=== PATIENT | female | born 1965 | race American Indian/Alaskan Native ===

== ENCOUNTER 2017-11-19 10:04 | Emergency (ER) | payer SELFPAY ==
[2017-11-19 10:22] VITALS: BP 122/98
--- NOTE | 2017-11-19 10:46 | Emergency Department Report ---
ED General Adult HPI - General Chief complaint: Pain General Stated complaint: hurting all over Time Seen by Provider: 11/19/17 10:29 Source: patient Mode of arrival: Ambulatory Limitations: No Limitations - History of Present Illness Initial comments: Patient is a 52-year-old [place] female past history of arthritis was in the MRI machine for roughly 40 3:55 days ago and because of lays still in position is now having increased left knee pain. Patient is a history of knee arthropathy with a total knee replacement. Patient states is been no trauma. Patient also is having some generalized body aches in her back as well from the procedure. Patient states is been no fevers chills nausea vomiting. - Related Data Home Medications Medication Instructions Recorded Confirmed Last Taken Esomeprazole Magnesium [NexIUM] 40 mg PO QDAY 08/18/15 08/18/15 08/17/15 Gabapentin [Neurontin] 600 mg PO DAILY 08/18/15 08/18/15 08/17/15 Hydrochlorothiazide [HCTZ] 25 mg PO QDAY 08/18/15 08/18/15 08/17/15 Ledipasvir/Sofosbuvir [Harvoni 1 tab PO DAILY 08/18/15 08/18/15 08/17/15 90-400 mg Tablet] Previous Rx's Medication Instructions Recorded Last Taken Type amLODIPine [Norvasc] 5 mg PO DAILY #30 tab 05/04/15 08/17/15 Rx Fluticasone [Flonase] 1 spray NS QDAY #1 bottle 08/19/15 Unknown Rx hydrOXYzine HCL [Atarax] 25 mg PO QHS PRN #5 tablet 01/10/16 Unknown Rx methylPREDNISolone [Medrol Dose 4 mg PO QAM #1 pack 01/10/16 Unknown Rx Miller] Ketorolac [Toradol] 10 mg PO Q6H PRN #14 tablet 11/19/17 Unknown Rx Allergies Allergy/AdvReac Type Severity Reaction Status Date / Time lisinopril Allergy Angioedema Verified 11/19/17 10:13 ED Review of Systems ROS: Stated complaint: hurting all over Other details as noted in HPI Comment: All other systems reviewed and negative ED Past Medical Hx - Past Medical History Hx Hypertension: Yes Hx CVA: No Hx Heart Attack/AMI: No Hx Congestive Heart Failure: No Hx Diabetes: No Hx Deep Vein Thrombosis: No Hx Pulmonary Embolism: No Hx GERD: Yes Hx Liver Disease: No Hx Renal Disease: No Hx Sickle Cell Disease: No Hx Arthritis: Yes Hx Headaches / Migraines: No Hx Seizures: No Hx Kidney Stones: No Hx Psychiatric Treatment: No Hx Asthma: No Hx COPD: No Hx Tuberculosis: No Hx Dementia: No Hx HIV: No Additional medical history: Hep C. - Surgical History Past Surgical History?: Yes Hx Coronary Stent: No Hx Open Heart Surgery: No Hx Pacemaker: No Hx Internal Defibrillator: No Hx Cholecystectomy: No Hx Appendectomy: Yes Hx Breast Surgery: No Additional Surgical History: knee surgery 2011, Cyst removed on ovaries. - Social History Smoking Status: Never Smoker Substance Use Type: None - Medications Home Medications: Home Medications Medication Instructions Recorded Confirmed Last Taken Type amLODIPine [Norvasc] 5 mg PO DAILY #30 tab 05/04/15 08/18/15 08/17/15 Rx Esomeprazole Magnesium [NexIUM] 40 mg PO QDAY 08/18/15 08/18/15 08/17/15 History Gabapentin [Neurontin] 600 mg PO DAILY 08/18/15 08/18/15 08/17/15 History Hydrochlorothiazide [HCTZ] 25 mg PO QDAY 08/18/15 08/18/15 08/17/15 History Ledipasvir/Sofosbuvir [Harvoni 1 tab PO DAILY 08/18/15 08/18/15 08/17/15 History 90-400 mg Tablet] Fluticasone [Flonase] 1 spray NS QDAY #1 bottle 08/19/15 Unknown Rx hydrOXYzine HCL [Atarax] 25 mg PO QHS PRN #5 tablet 01/10/16 Unknown Rx methylPREDNISolone [Medrol Dose 4 mg PO QAM #1 pack 01/10/16 Unknown Rx Miller] Ketorolac [Toradol] 10 mg PO Q6H PRN #14 tablet 11/19/17 Unknown Rx ED Physical Exam - General Limitations: No Limitations General appearance: alert, in no apparent distress - Head Head exam: Present: atraumatic, normocephalic - Eye Eye exam: Present: normal appearance - ENT ENT exam: Present: mucous membranes moist - Neck Neck exam: Present: normal inspection - Respiratory Respiratory exam: Present: normal lung sounds bilaterally. Absent: respiratory distress, wheezes, rales, rhonchi - Cardiovascular Cardiovascular Exam: Present: regular rate, normal rhythm. Absent: systolic murmur, diastolic murmur, rubs, gallop - GI/Abdominal GI/Abdominal exam: Present: soft, normal bowel sounds. Absent: distended, tenderness, guarding, rebound - Extremities Exam Extremities exam: Present: normal inspection - Back Exam Back exam: Present: normal inspection - Neurological Exam Neurological exam: Present: alert, oriented X3 - Psychiatric Psychiatric exam: Present: normal affect, normal mood - Skin Skin exam: Present: warm, dry, intact, normal color. Absent: rash ED Course Vital Signs 11/19/17 10:04 Temperature 98.2 F Pulse Rate 99 H Respiratory 16 Rate Blood Pressure 122/98 O2 Sat by Pulse 98 Oximetry Critical care attestation.: If time is entered above; I have spent that time in minutes in the direct care of this critically ill patient, excluding procedure time. ED Disposition Clinical Impression: Musculoskeletal pain Disposition: DC-01 TO HOME OR SELFCARE Is pt being admited?: No Does the pt Need Aspirin: No Condition: Stable Instructions: Musculoskeletal Pain (ED), RICE Therapy (ED) Referrals: PRIMARY CARE, [Primary Care Provider] - 3-5 Days
== END 2017-11-19 10:56 | disposition home or self-care (01) ==
LOC: ED 10:04
DX: M79.1 Myalgia (principal); I10 Essential (primary) hypertension; K21.9 Gastro-esophageal reflux disease without esophagitis; M19.90 Unspecified osteoarthritis, unspecified site; Z90.49 Acquired absence of other specified parts of digestive tract; Z98.890 Other specified postprocedural states; Z88.8 Allergy status to other drugs, medicaments and biological substances; Z79.899 Other long term (current) drug therapy
CPT/HCPCS: 99282